=== PATIENT | female | born 1975 | race Caucasian/White ===

== ENCOUNTER 2023-03-15 11:23 | Emergency (ER) | payer BC, OTHER ==
[~2023-03-15] VITALS: Ht 167.6 cm; Wt 65.8 kg
[~2023-03-15 11:23] MED LIST: PANT40TA55 PO
[2023-03-15 12:04] LABS: BASOPHILS # (AUTO) 0.04 K/uL (0.00-0.20); BASOPHILS % (AUTO) 0.5 % (0.0-5.0); EOSINOPHILS # (AUTO) 0.15 K/uL (0.00-0.70); EOSINOPHILS % (AUTO) 1.7 % (0.0-8.0); HEMATOCRIT 38.5 % (36-48); IMMATURE GRANULOCYTE ABSOLUTE 0.03 K/uL (0-1); LYMPHOCYTES # (AUTO) 3.3 K/uL (1.0-4.8); MEAN CORPUSCULAR HEMOGLOBIN 25.2 pg (27.0-33.0); MEAN CORPUSCULAR HGB CONC 31.9 g/dL (32.0-36.0); MEAN CORPUSCULAR VOLUME 78.7 fL (79-99); MONOCYTES # (AUTO) 0.5 K/uL (0.1-1.0); MONOCYTES % (AUTO) 5.1 % (3.0-13.0); NEUTROPHILS # (AUTO) 4.9 K/uL (1.8-7.7); NEUTROPHILS % (AUTO) 55.4 % (40.0-77.0); PLATELET COUNT (AUTO) 362 K/uL (130-400); RED BLOOD CELL COUNT(AUTO) 4.89 MIL/uL (4.00-5.50); RED CELL DISTRIBUTION WIDTH 14.7 % (11.0-15.5); WHITE BLOOD COUNT (AUTO) 8.8 K/uL (4.8-10.8)
[2023-03-15 12:13] LABS: CREATININE 0.8 mg/dL (0.5-1.5); POTASSIUM 4.5 mmol/L (3.5-5.1)
[2023-03-15 12:20] LABS: ALBUMIN 3.6 g/dL (3.5-5.0); TOTAL PROTEIN, SERUM 8.1 g/dL (6.0-8.3)
[2023-03-15 16:51] VITALS: BP 121/61; PULSE 71; RESP 18; O2SAT 97
== END 2023-03-15 16:56 | disposition home or self-care (01) ==
LOC: EDH 11:23
DX: K59.09 Other constipation (principal)
CPT/HCPCS: 36415; 74021; 80053; 85025

== ENCOUNTER 2024-12-23 12:45 | Emergency (ER) | payer BC ==
[~2024-12-23] VITALS: Ht 177.8 cm; Wt 91.6 kg
[2024-12-23 12:46] VITALS: BP 115/73; PULSE 96; RESP 19; TEMP 97.8
--- NOTE | 2024-12-23 12:54 | ERN ---
ED Note History of Present Illness Stated Complaint: RECTAL BLEEDING Chief Complaint: Multiple Complaints Time Seen by MD: 12:50 Dictation: PATIENT IS A 50-YEAR-OLD FEMALE Allergies: Coded Allergies: codeine (Unverified Allergy, Unknown, 02/25/22) Home Meds Active Scripts Pantoprazole Sodium (Protonix) 40 Mg Ectab, 40 MG PO DAILY for 30 Days, #30 TA B.EC Prov:CB DELEON MD 02/25/22 Past Medical History Past Medical History: Anemia, Bipolar, Schizophrenia Additional Past Medical Hx: HIATAL HERNIA Surgical History: Other Surgical History Other: HERNIA REPAIR Social History: Negative, Lives with family History: Not Applicable RN Note Reviewed/Agreed w/PFSH: Yes Review of System Dictation CONSTITUTIONAL: NEGATIVE EXCEPT FOR HPI HEAD/FACE: NEGATIVE EXCEPT FOR HPI EENT: NEGATIVE EXCEPT FOR HPI RESPIRATORY: NEGATIVE EXCEPT FOR HPI GASTROINTESTINAL/ABDOMINAL: NEGATIVE EXCEPT FOR HPI RECTAL BLEEDING GENITOURINARY: NEGATIVE EXCEPT FOR HPI MUSCULOSKELETAL: NEGATIVE EXCEPT FOR HPI INTEGUMENTARY: NEGATIVE EXCEPT FOR HPI NEUROLOGICAL/PSYCH: NEGATIVE EXCEPT FOR HPI HEMATOLOGIC/LYMPHATIC: NEGATIVE EXCEPT FOR HPI ALL SYSTEMS NEGATIVE, EXCEPT NOTED ABOVE. 13 POINT REVIEW OF SYSTEMS ASSESSED AND ALL NEGATIVE EXCEPT FOR ABOVE. Initial Vital Sign VS Vital Signs Date Time Temp Pulse Resp B/P (MAP) Pulse Ox O2 Delivery O2 Flow Rate FiO2 12/23/24 12:46 97.9 96 19 115/73 99 Room Air 0 Physical Exam Dictation VITAL SIGNS REVIEWED GENERAL APPEARANCE: ALERT, ORIENTED X 3, NO ACUTE DISTRESS, WELL DEVELOPED, NOURISHED. HEAD AND FACE: NON-TRAUMATIC. EYES: PERRL, PINK CONJUNCTIVAS, EYELID NO TRAUMA, ANTERIOR CHAMBER WITH ARCUS SENILIS. EARS: PINNAS INTACT AND NO SIGNS OF TRAUMA OR ERYTHEMA EAR CANALS CLEAR AND NO D ISCHARGE TM NO ERYTHEMA NOSE: NO DISCHARGE, NO BLEEDING. OROPHARYNX: MOUTH NORMAL, TONGUE PINK, PHARYNX CLEAR,NO ERYTHEMA, TONSILS NO EXUDATES, NO ABSCESSES NOTED, MUCOUS MEMBRANE MOIST NECK: SUPPLE, NON-TENDER, NO THYROMEGALY, NO MASSES, NO JVD, NO BRUITS BREAST:DEFERRED CHEST:NO TENDERNESS, NO CREPITUS, NO PARADOXICAL MOVEMENT, NO RETRACTIONS LUNGS:CLEAR, WELL-VENTILATED, SYMMETRIC, NO RALES, NO WHEEZING, NO RHONCHI, NO STRIDOR, GOOD BREATH SOUNDS BILATERALLY HEART: REGULAR RATE, REGULAR RHYTHM, NO MURMUR, NO GALLOPS VASCULAR: NO PERIPHERAL EDEMA, ABDOMEN: SOFT, POSITIVE BOWEL SOUNDS, NONDISTENDED, NO GUARDING, NONTENDER, NO REBOUND, NO MASSES NO HEPATOMEGALY, NO SPLENOMEGALY, NO KAPLAN'S SIGN, NO HERNIAS. NO PAIN WHEN I TALKED TO HER ON THE STRETCHER. RECTAL: DEFERRED PATIENT WAS NEVER TRANSFER TO PRIVATE ROOM FOR PHYSICAL EXAM. GENITAL: DEFERRED NEUROLOGICAL: NORMAL SPEECH, MOTOR FUNCTION INTACT, SENSORY FUNCTION INTACT MUSCULOSKELETAL: NECK NONTENDER, FULL RANGE OF MOTION, BACK NONTENDER, FULL RANGE OF MOTION, EXTREMITIES: NONTENDER, FULL RANGE OF MOTION SKIN: COLOR PINK, DRY, NO TURGOR, NO RASH, NO LACERATIONS, NO ABRASIONS, NO CONTUSIONS. LYMPHATIC: DEFERRED Results (Laboratory/Radiology) Laboratory/Radiology Laboratory Tests Test 12/23/24 13:10 White Blood Count 8.1 K/uL (4.8-10.8) Red Blood Count 5.22 MIL/uL (4.00-5.50) Hemoglobin 15.0 g/dL (12.0-16.0) Hematocrit 46.9 % (36-48) Mean Corpuscular Volume 89.8 fL (79-99) Mean Corpuscular Hemoglobin 28.7 pg (27.0-33.0) Mean Corpuscular Hemoglobin Concent 32.0 g/dL (32.0-36.0) Red Cell Distribution Width 13.0 % (11.0-15.5) Platelet Count 314 K/uL (130-400) Mean Platelet Volume 9.1 fL (7.5-10.5) Immature Granulocyte % (Auto) 0.7 % (0-1) Neutrophils (%) (Auto) 59.6 % (40.0-77.0) Lymphocytes (%) (Auto) 23.6 % (21.0-51.0) Monocytes (%) (Auto) 3.9 % (3.0-13.0) Eosinophils (%) (Auto) 11.6 % (0.0-8.0) H Basophils (%) (Auto) 0.6 % (0.0-5.0) Neutrophils # (Auto) 4.8 K/uL (1.8-7.7) Lymphocytes # (Auto) 1.9 K/uL (1.0-4.8) Monocytes # (Auto) 0.3 K/uL (0.1-1.0) Eosinophils # (Auto) 0.94 K/uL (0.00-0.70) H Basophils # (Auto) 0.05 K/uL (0.00-0.20) Absolute Immature Granulocyte (auto 0.06 K/uL (0-1) Nucleated Red Blood Cells 0.0 % (0.0-0.19) Sodium Level 140 mmol/L (136-145) Potassium Level 4.2 mmol/L (3.5-5.1) Chloride Level 103 mmol/L (101-111) Carbon Dioxide Level 31 mmol/L (21-32) Blood Urea Nitrogen 18 mg/dL (7-18) Creatinine 0.8 mg/dL (0.5-1.0) Glomerular Filtration Rate Calc 91 mL/min (>90) Random Glucose 94 mg/dL (70-105) Total Calcium 9.6 mg/dL (8.5-10.1) Lipase 23 U/L (16-77) ED Course ED Course Orders Procedure Category Date Status Time Cbc With Differential LAB 12/23/24 Complete 12:53 ,Urine Test LAB 12/23/24 Logged 12:53 Urinalysis Profile LAB 12/23/24 Logged 12:53 Occult Blood Stool LAB 12/23/24 Logged Single Only 12:53 Famotidine 20mg Vial PHA 12/23/24 Complete (Pepcid 20mg Vial) 13:00 Lipase LAB 12/23/24 Complete 12:53 Basic Metabolic Panel LAB 12/23/24 Complete 12:53 Current Medications Medications (Trade) Dose Ordered Sig/Mallika Route PRN Reason Start Time Stop Time Status Last Admin Dose Admin Famotidine (Pepcid 20mg Vial) 20 mg ONCE ONCE IV 12/23/24 13:00 12/23/24 13:01 DC Vital Signs Date Time Temp Pulse Resp B/P (MAP) Pulse Ox O2 Delivery O2 Flow Rate FiO2 12/23/24 12:46 97.9 96 19 115/73 99 Room Air 0 Medical Decision Making [facility] 1840/PATIENT ELOPED FROM THE WAITING ROOM. HER MOTHER TOLD THE TRIAGE NURSE THAT SHE WAS LEAVING TRIAGE NURSE SPOKE TO PATIENT AND MADE HER AWARE THAT HER LABS WERE NORMAL THERE WAS NO ANEMIA. SHE SAID SHE WOULD SEE YOUR PRIMARY CARE DOCTOR AND HE LEFT DX & DISP Disposition: AMA Departure Impression: Primary Impression: Rectal bleeding Condition: Stable Referrals: RAY HUA MD (PCP) Time of Disposition: 18:43 I have reviewed the case, and I agree with, Diagnosis and Plan DAWSON URBANO NP Dec 23, 2024 12:54
[2024-12-23] MEDS ORDERED: FAMOTIDINE 20MG VIAL IV ONE (13:00)
[2024-12-23 13:17] LABS: IMMATURE GRANULOCYTE ABSOLUTE 0.06 K/uL (0-1); NUCLEATED RED BLOOD CELLS 0.0 % (0.0-0.19); PLATELET COUNT (AUTO) 314 K/uL (130-400); RED BLOOD CELL COUNT(AUTO) 5.22 MIL/uL (4.00-5.50); RED CELL DISTRIBUTION WIDTH 13.0 % (11.0-15.5); WHITE BLOOD COUNT (AUTO) 8.1 K/uL (4.8-10.8)
[2024-12-23 13:26] LABS: CREATININE 0.8 mg/dL (0.5-1.0); GLOMERULAR FILTR. RATE CALC 91.0 mL/min (>90); GLUCOSE,RANDOM 94.0 mg/dL (70-105); SODIUM SERUM 140.0 mmol/L (136-145); UREA NITROGEN, BLOOD 18.0 mg/dL (7-18)
--- NOTE | 2024-12-23 18:27 | NUR ---
PT CALLED BACK FOR CARE TO FAST TRACK, NO RESPONSE, ATTEMPT X1./DELFIN
--- NOTE | 2024-12-23 18:32 | NUR ---
PT CALLED FOR CARE, NO ANSWER, ATTEMPT X2./DELFIN
--- NOTE | 2024-12-23 18:37 | NUR ---
PT CALLED FOR CARE, NO ANSWER, ATTEMPT X3. QUESTIONED SECURITY IF PATIENT WAS SEEN IN WAITING AREA PRIOR, STATED THEY HAD NOT SEEN HER. PATIENT ELOPED AT THIS TIME./DELFIN
== END 2024-12-23 18:39 | disposition left against medical advice (07) ==
LOC: EDH 12:45
DX: K62.5 Hemorrhage of anus and rectum (principal); F20.9 Schizophrenia, unspecified; F31.9 Bipolar disorder, unspecified; Z79.899 Other long term (current) drug therapy; Z88.5 Allergy status to narcotic agent; Z98.890 Other specified postprocedural states
CPT/HCPCS: 36415; 80048; 83690; 85025; 99283